=== PATIENT | female | born 1995 | race Caucasian/White ===

== ENCOUNTER → 2024-01-23 09:59 | Outpatient (REF) | payer OTHER, SELFPAY | LOC: PNTC 09:59 | PROVIDERS: ATTENDING PHYSICIAN Obstetrics & Gynecology | DX: Z36.0 Encounter for antenatal screening for chromosomal anomalies (principal); Z36.82 Encounter for antenatal screening for nuchal translucency | CPT/HCPCS: 76801; 76813 ==

== ENCOUNTER 2024-08-01 02:59 | Inpatient (IN) | payer OTHER, SELFPAY ==
[2024-08-01 03:10] VITALS: BMI 27.2
[2024-08-01 03:35] VITALS: BP 119/71
[2024-08-01 04:25] LABS: % Basophils 0.7 % (0-2); % Eosinophils 0.6 % (0-6); % Immature Granulocytes 0.7 % (0-0.5); % Lymphocytes 20.4 % (20.5-51.1); % Monocytes 6.7 % (1.7-9.3); % Neutrophils 70.9 % (42.2-75.2); Absolute Basophils 0.1 10^3/uL (0-0.2); Absolute Eosinophils 0.1 10^3/uL (0-0.7); Absolute Immature Granulocytes 0.1 10^3/uL (0-0.05); Absolute Lymphocytes 2.6 10^3/uL (1.2-3.4); Absolute Monocytes 0.8 10^3/uL (0.1-0.6); Absolute Neutrophils 8.9 10^3/uL (1.4-6.5); Hematocrit 33.2 % (37.0-47.0); Hemoglobin 12.1 g/dL (12.0-16.0); Mean Corp Hgb Conc. 36.4 g/dL (33.0-37.0); Mean Corpuscular Hgb 29.4 pg (27.0-31.0); Mean Corpuscular Volume 80.6 fL (81.0-99.0); Mean Platelet Volume 11.3 fL (7.4-10.4); Nucleated Red Blood Cells % 0 %; Platelet Count 244 10^3/uL (130-400); Red Blood Cell Count 4.12 10^6/uL (4.20-5.40); Red Cell Dist. Width 12.5 % (11.5-14.5); White Blood Cell Count 12.6 10^3/uL (4.8-10.8)
[2024-08-01] MEDS: SUBLIMAZE 100 MCG EPIDURAL (05:10)
[2024-08-01] MEDS: FENTANYL/BUPIVACAINE 100 EPIDURAL (05:10)
[2024-08-01] MEDS: PITOCIN 30 UNITS/NSS 500 ML IV (10:33)
[2024-08-01] MEDS: MOTRIN 600 MG PO (15:38)
[2024-08-02] MEDS: MOTRIN 600 MG PO ×2 (04:47→20:31)
[2024-08-02 05:00] LABS: Hemoglobin 10.8 g/dL (12.0-16.0)
[2024-08-02] MEDS: PRENATAL PLUS 1 TABLET PO (08:25)
[2024-08-02] MEDS: SENOKOT-S 1 TABLET PO (08:28)
[2024-08-02 11:21] LABS: Syphilis/T. pallidum Ab Reflex Negative (Negative)
[2024-08-03] MEDS: AFLURIA (36 mos+) 2024-2025 FORMULA 0.5 ML IM (09:51)
[2024-08-03] MEDS: SENOKOT-S 1 TABLET PO (09:53)
[2024-08-03] MEDS: PRENATAL PLUS 1 TABLET PO (09:54)
== END 2024-08-03 11:45 | disposition home or self-care (01) | DRG 807 ==
LOC: LDRP 02:59
PROVIDERS: Obstetrics & Gynecology; Student in an Organized Health Care Education/Training Program; ADMITTING PHYSICIAN Obstetrics & Gynecology
PROC: 10E0XZZ Delivery of Products of Conception, External Approach (ICD-10-PCS; 2024-08-01)
PROC: 0HQ9XZZ Repair Perineum Skin, External Approach (ICD-10-PCS; 2024-08-01)
PROC: 10907ZC Drainage of Amniotic Fluid, Therapeutic from Products of Conception, Via Natural or Artificial Opening (ICD-10-PCS; 2024-08-01)
DX: O48.0 Post-term pregnancy (principal); Z37.0 Single live birth; Z3A.40 40 weeks gestation of pregnancy; O69.1XX0 Labor and delivery complicated by cord around neck, with compression, not applicable or unspecified; O70.0 First degree perineal laceration during delivery
CPT/HCPCS: 85014; 85018; 85025; 86780; 86850; 86900; 86901; 90686; G0008